=== PATIENT | male | born 1990 | race Caucasian/White ===

== ENCOUNTER 2016-10-11 11:23 | Inpatient (IN) | payer OTHER ==
[~2016-10-11] VITALS: Ht 182.8 cm; Wt 84.6 kg
--- NOTE | ~2016-10-11 | O ---
[place], [place] OPERATIVE NOTE NAME: FRIDA [facility]JIA [facility] #: [id number] UNIT #: [id number] ROOM: 502 DOCTOR: LYNDSEY PINZON MD BIRTHDATE: [birth year] DOS: 10/12/2016 PREOPERATIVE DIAGNOSIS: Right forearm abscess. POSTOPERATIVE DIAGNOSIS: Right forearm abscess. PROCEDURE: Incision and drainage, right forearm abscess. SURGEON: Lyndsey Pinzon MD GASTROENTEROLOGIST: [id number]. ANESTHESIA: Local (1% plain lidocaine). INDICATIONS: This is a 26-year-old gentleman, for which a consult was placed for an incision and drainage of her right forearm abscess. It was decided to proceed with the bedside procedure. The procedure and its complications explained to the patient in detail. He agreed to proceed. DESCRIPTION OF PROCEDURE: After identifying the patient, the contents were signs and a timeout procedure was called. The parts were painted and draped in the usual sterile fashion and local anesthesia was infiltrated in the line of the incision, which was the most fluctuant part of the abscess. Thereafter, an incision was made and approximately 2-3 mL of pus was drained. A specimen was sent for histopathological diagnosis. Thereafter, the abscess cavity was packed with the help of half inch iodoform and a dressing was placed. The patient tolerated the procedure well and there were no complications. Dr. Lyndsey Pinzon, the attending surgeon, was present throughout the operating case. Lyndsey Pinzon MD CM:OPRECORD:OPERATIVE NOTE [id number] LYNDSEY PINZON MD 10/12/16 1313 interface
[~2016-10-11 11:23] MED LIST: ADDERALL 10 MG10 MG PO; ATIVAN PO; CLINDAMYCIN HC300 MG PO; NKHM; TRAMADOL HCL50 MG PO; ZOLOFT50 MG PO
[2016-10-11 11:38] VITALS: BP 158/82
[2016-10-11] MEDS ORDERED: VENTOLIN H0.09 MG/AC INH (11:42)
[2016-10-11] MEDS ORDERED: PROVENTIL0.09 MG/A1 INH (11:42)
[2016-10-11 12:04] LABS: HEMATOCRIT 49.9 % (42.0-52.0); HEMOGLOBIN 16.7 g/dl (14.0-18.0); MEAN CELL VOLUME 91.2 fl (80.0-94.0); MEAN CORPUSCULAR HGB 30.5 pg (27.0-31.0); MEAN CORPUSCULAR HGB CONC 33.5 g/dl (33.0-37.0); MEAN PLATELET VOLUME 9.2 fl (9.6-12.3); PLATELET COUNT AUTOMATED 322 10*3/uL (130-400); RED BLOOD COUNT 5.47 10*6/uL (4.50-5.90); RED CELL DISTRI WIDTH 12.1 % (0-14.5)
[2016-10-11 12:20] LABS: ALBUMIN 3.8 gm/dl (3.1-4.5); ALKALINE PHOSPHATASE 69 U/L (45-117); BILIRUBIN, TOTAL 0.8 mg/dl (0.2-1.0); BUN 5 mg/dl (7-24); CARBON DIOXIDE 26 mmol/L (21-32); CHLORIDE 103 mmol/L (98-107); EST GLOM FILT AFRICAN AMERICAN > 60 ml/min; GLUCOSE 102 mg/dL (65-99); POTASSIUM 3.5 mmol/L (3.5-5.1); SGOT/AST 19 IU/L (3-35); SGPT/ALT 41 U/L (12-78); SODIUM 140 mmol/L (136-145); TOTAL PROTEIN 7.8 gm/dL (6.4-8.2)
[2016-10-11 12:26] LABS: LYMPHOCYTE # 1.5 10*3/uL (1.3-4.4); MONOCYTE # 2.3 10*3/uL (0.1-1.0); NEUTROPHIL # 17.2 10*3/uL (2.3-7.9); NEUTROPHILS 82 % (47-73); TOTAL CELLS COUNTED 100 #CELLS
[2016-10-11 12:27] LABS: PLATELET SUFFICIENCY NORMAL (NORMAL)
[2016-10-11 12:43] VITALS: BP 137/82
[2016-10-11 13:15] VITALS: BP 150/83
[2016-10-11 14:00] LABS: LA>2 REFLEX 2 HR DRAW NOW
[2016-10-11 14:58] VITALS: BP 152/78
[2016-10-11 17:07] LABS: BILIRUBIN NEGATIVE (NEGATIVE); BLOOD NEGATIVE (NEGATIVE); CLARITY CLEAR (CLEAR); COLOR YELLOW (YELLOW); GLUCOSE NEGATIVE (NEGATIVE); KETONE NEGATIVE (NEGATIVE); LEUKO ESTERASE NEGATIVE (NEGATIVE); NITRITE NEGATIVE (NEGATIVE); PROTEIN NEGATIVE (NEGATIVE); SPECIFIC GRAVITY <= 1.005 (1.005-1.030); UROBILINOGEN 0.2 E.U./dl (0.2-1.0)
[2016-10-11 17:17] LABS: URINE AMPHETAMINES > 1000 (1000ng/ml); URINE BARBITURATES < 200 (200ng/ml); URINE COCAINE < 300 (300ng/ml)
[2016-10-11 17:27] LABS: MUCOUS TRACE
[2016-10-11 20:00] VITALS: BP 133/63
[2016-10-12] VITALS: BP 133/54
[2016-10-12 04:00] VITALS: BP 138/52
[2016-10-12 06:55] LABS: HEMATOCRIT 49.7 % (42.0-52.0); HEMOGLOBIN 16.4 g/dl (14.0-18.0); MEAN CELL VOLUME 93.4 fl (80.0-94.0); MEAN CORPUSCULAR HGB 30.8 pg (27.0-31.0); MEAN PLATELET VOLUME 9.8 fl (9.6-12.3); PLATELET COUNT AUTOMATED 291 10*3/uL (130-400); RED BLOOD COUNT 5.32 10*6/uL (4.50-5.90); RED CELL DISTRI WIDTH 12.4 % (0-14.5); WHITE BLOOD COUNT 20.3 10*3/uL (4.8-10.8)
[2016-10-12 07:20] LABS: BUN 5 mg/dl (7-24); CARBON DIOXIDE 24 mmol/L (21-32); CHLORIDE 109 mmol/L (98-107); EST GLOM FILT AFRICAN AMERICAN > 60 ml/min; GLUCOSE 75 mg/dL (65-99); POTASSIUM 3.6 mmol/L (3.5-5.1); SODIUM 143 mmol/L (136-145)
[2016-10-12 08:00] VITALS: BP 108/64
[2016-10-12 08:06] LABS: FOLIC ACID 5.66 ng/mL (>5.38)
[2016-10-12 08:08] LABS: ATYPICAL LYMPHS 1 % (0-0); BURR CELLS FEW; LYMPHOCYTE # 2.4 10*3/uL (1.3-4.4); NEUTROPHIL # 16.8 10*3/uL (2.3-7.9); NEUTROPHILS 83 % (47-73); PLATELET SUFFICIENCY NORMAL (NORMAL); TOTAL CELLS COUNTED 100 #CELLS
[2016-10-12 12:00] VITALS: BP 138/66
[2016-10-12 16:00] VITALS: BP 126/62
[2016-10-12 20:00] VITALS: BP 124/61
[2016-10-13] VITALS: BP 139/69
[2016-10-13 06:11] LABS: HEMOGLOBIN 14.7 g/dl (14.0-18.0); MEAN CELL VOLUME 92.8 fl (80.0-94.0); MEAN CORPUSCULAR HGB 31.2 pg (27.0-31.0); MEAN CORPUSCULAR HGB CONC 33.6 g/dl (33.0-37.0); MEAN PLATELET VOLUME 9.2 fl (9.6-12.3); PLATELET COUNT AUTOMATED 281 10*3/uL (130-400); RED BLOOD COUNT 4.71 10*6/uL (4.50-5.90); RED CELL DISTRI WIDTH 12.4 % (0-14.5); WHITE BLOOD COUNT 20.6 10*3/uL (4.8-10.8)
[2016-10-13 06:31] LABS: HEMATOCRIT 43.7 % (42.0-52.0)
[2016-10-13 06:39] LABS: BUN 3 mg/dl (7-24); CARBON DIOXIDE 25 mmol/L (21-32); CHLORIDE 112 mmol/L (98-107); EST GLOM FILT AFRICAN AMERICAN > 60 ml/min; GLUCOSE 78 mg/dL (65-99); POTASSIUM 4.2 mmol/L (3.5-5.1); SODIUM 146 mmol/L (136-145)
[2016-10-13 07:19] LABS: ATYPICAL LYMPHS 6 % (0-0); BURR CELLS MODERATE; LYMPHOCYTE # 3.1 10*3/uL (1.3-4.4); MONOCYTE # 1.9 10*3/uL (0.1-1.0); NEUTROPHIL # 15.7 10*3/uL (2.3-7.9); NEUTROPHILS 76 % (47-73); PLATELET SUFFICIENCY NORMAL (NORMAL); TOTAL CELLS COUNTED 100 #CELLS
[2016-10-13 08:00] VITALS: BP 128/60
[2016-10-13 12:00] VITALS: BP 129/64
[2016-10-13 16:00] VITALS: BP 138/70
[2016-10-13 20:00] VITALS: BP 129/70
[2016-10-14] VITALS: BP 145/75
[2016-10-14 06:18] LABS: HEMATOCRIT 43.9 % (42.0-52.0); HEMOGLOBIN 14.9 g/dl (14.0-18.0); MEAN CELL VOLUME 92.4 fl (80.0-94.0); MEAN CORPUSCULAR HGB 31.4 pg (27.0-31.0); MEAN CORPUSCULAR HGB CONC 33.9 g/dl (33.0-37.0); MEAN PLATELET VOLUME 9.1 fl (9.6-12.3); PLATELET COUNT AUTOMATED 308 10*3/uL (130-400); RED BLOOD COUNT 4.75 10*6/uL (4.50-5.90); RED CELL DISTRI WIDTH 12.5 % (0-14.5); WHITE BLOOD COUNT 14.8 10*3/uL (4.8-10.8)
[2016-10-14 06:57] LABS: BUN 3 mg/dl (7-24); CARBON DIOXIDE 27 mmol/L (21-32); CHLORIDE 110 mmol/L (98-107); EST GLOM FILT AFRICAN AMERICAN > 60 ml/min; GLUCOSE 93 mg/dL (65-99); POTASSIUM 4.3 mmol/L (3.5-5.1); SODIUM 144 mmol/L (136-145)
[2016-10-14 07:16] LABS: ATYPICAL LYMPHS 5 % (0-0); BASOPHIL # 0.1 10*3/uL (0-0.1); BASOPHILS 1 % (0-1); BURR CELLS FEW; LYMPHOCYTE # 3.7 10*3/uL (1.3-4.4); MONOCYTE # 0.6 10*3/uL (0.1-1.0); NEUTROPHIL # 10.4 10*3/uL (2.3-7.9); NEUTROPHILS 70 % (47-73); PLATELET SUFFICIENCY NORMAL (NORMAL); TOTAL CELLS COUNTED 100 #CELLS
[2016-10-14 08:00] VITALS: BP 140/70
[2016-10-14 12:00] VITALS: BP 138/66
[2016-10-14 16:00] VITALS: BP 140/70
[2016-10-14 20:00] VITALS: BP 129/72
[2016-10-15] VITALS: BP 140/77
[2016-10-15 08:00] VITALS: BP 151/75
[2016-10-15 08:01] LABS: BASO # 0.1 10*3/uL (0.0-0.1); BASO % 0.4 % (0.0-1.0); EOS # 0.2 10*3/uL (0.0-0.4); EOS % 1.3 % (1.0-4.0); IG # 0.1 10*3/uL (0.0-0.1); LYMPH # 2.6 10*3/uL (1.3-4.4); LYMPH % 23.1 % (27.0-41.0); MEAN CELL VOLUME 91.2 fl (80.0-94.0); MEAN CORPUSCULAR HGB 31.1 pg (27.0-31.0); MEAN CORPUSCULAR HGB CONC 34.1 g/dl (33.0-37.0); MEAN PLATELET VOLUME 8.8 fl (9.6-12.3); MONO # 1.3 10*3/uL (0.1-1.0); MONO % 11.8 % (3.0-9.0); NEUT # 7.1 10*3/uL (2.3-7.9); PLATELET COUNT AUTOMATED 354 10*3/uL (130-400); RED BLOOD COUNT 5.47 10*6/uL (4.50-5.90); RED CELL DISTRI WIDTH 12.3 % (0-14.5); WHITE BLOOD COUNT 11.2 10*3/uL (4.8-10.8)
[2016-10-15 08:08] LABS: HEMATOCRIT 49.9 % (42.0-52.0)
[2016-10-15 08:14] LABS: BUN 6 mg/dl (7-24); CARBON DIOXIDE 25 mmol/L (21-32); CHLORIDE 106 mmol/L (98-107); EST GLOM FILT AFRICAN AMERICAN > 60 ml/min; GLUCOSE 79 mg/dL (65-99); POTASSIUM 4.2 mmol/L (3.5-5.1); SODIUM 142 mmol/L (136-145)
[2016-10-15] MEDS ORDERED: CLEOCIN HCL300 MG PO (11:07)
[2016-10-15 12:00] VITALS: BP 136/84
== END 2016-10-15 13:07 | disposition home or self-care (01) | DRG 872 ==
LOC: ED 11:23 → EDHOLD 12:45 → 5E 13:31
PROVIDERS: Hospitalist; Internal Medicine; Nurse Practitioner Family
PROC: 0X9D0ZZ Drainage of Right Lower Arm, Open Approach (ICD-10-PCS; principal; 2016-10-12)
DX: A41.9 Sepsis, unspecified organism (principal); E87.2 Acidosis; L02.413 Cutaneous abscess of right upper limb; L03.113 Cellulitis of right upper limb; R65.20 Severe sepsis without septic shock; R03.0 Elevated blood-pressure reading, without diagnosis of hypertension; F15.10 Other stimulant abuse, uncomplicated; F17.210 Nicotine dependence, cigarettes, uncomplicated; J45.909 Unspecified asthma, uncomplicated; Z98.890 Other specified postprocedural states; Z82.5 Family history of asthma and other chronic lower respiratory diseases; Z79.899 Other long term (current) drug therapy